=== PATIENT | male | born 1975 | race Caucasian/White ===

== ENCOUNTER 2019-02-17 20:33 | Inpatient (IN) ==
[2019-02-17] MEDS ORDERED: NITROGLYCERIN 2% OINTMENT 30GM TUBE EXT STA (21:18)
[2019-02-17] MEDS ORDERED: MoRPHine SULFATE 4 MG/ML 1 ML CARP\\VIAL IV STA (21:18)
[2019-02-17] MEDS ORDERED: ASPIRIN 81 MG CHEW PO STA (21:18)
[2019-02-17 21:38] LABS: INR 1.1 (0.9-1.1); Prothrombin Time 10.8 Seconds (9.0-12.0)
[2019-02-17 21:51] LABS: Albumin Level 3.9 gm/dl (3.4-5.0); BUN Creatinine Ratio 12.3 (10-20); Calcium 9.3 mg/dl (8.5-10.1); Creatinine Clr Calc Pharmacy 69.9 ml/min; Est GFR (African American) 58.1; Est GFR (Non-African American) 50.1
[2019-02-17 22:09] LABS: Basophils # (auto) 0.07 K/uL (0-0.2); Basophils % (auto) 0.6 %; Eosinophils # (auto) 0.19 K/uL (0-0.5); Eosinophils % (auto) 1.5 %; Hematocrit (blood only) 55.1 % (42-52); Immature Granulocytes % (auto) 0.8 %; Lymphocytes # (auto) 1.06 K/uL (1.2-3.4); Lymphocytes % (auto) 8.4 %; Mean Corpuscular Hemoglobin 31.3 pg (25-34); Mean Corpuscular Volume 90.6 fL (80-100); Mean Platelet Volume 9.8 fL (7.4-10.4); Monocytes % (auto) 6.4 %; Neutrophils # (auto) 10.34 K/uL (1.4-6.5); Neutrophils % (auto) 82.3 %; Platelet Count 235 K/uL (130-400); RDW Coefficient of Variation 14.3 % (11.5-14.5); RDW Standard Deviation 47.8 fL (36.4-46.3); Red Blood Count 6.08 M/uL (4.7-6.1); White Blood Count 12.56 K/uL (4.8-10.8)
[2019-02-17 22:10] LABS: Bilirubin,Total 0.3 mg/dl (0.2-1); Globulin 3.8 gm/dl (2.5-4.0); Total Protein 7.7 gm/dl (6.4-8.2); Troponin I 0.24 ng/ml (0-0.045)
[2019-02-17 22:21] LABS: Mean Corpuscular Hgb Conc 34.5 g/dL (32-36)
--- NOTE | 2019-02-18 00:17 | Emergency Department Note ---
History of Present Illness General Chief Complaint: Chest Pain Stated Complaint: chest pain History of Present Illness Maximum Pain Intensity: 9 This patient is a 43-year-old male who presents to the emergency department with sudden onset of midsternal chest pain that he describes as a burning sensation when he was doing a bench press exercise today. The patient had a similar episode of chest pain that started 1 week ago. It lasted several hours. He was also working out at that time. The patient was seen at [facility] where he refused a work-up, and signed out AMA. The patient currently denies any shortness of breath. He is still experiencing the pain. No dizziness, nausea or sweating. No heart palpitations. He does not have a history of known cardiac disease. He has never had a stress test. He does not smoke, and denies any cocaine use. He is taking a significant amount of supplements for weightlifting. He was told that he had an elevated CK last week Home Medications Home Medications Medication Instructions Recorded Confirmed Type ibuprofen 400 mg PO QID PRN 02/17/19 02/17/19 History sildenafil 0 mg PO DAILY PRN 02/17/19 02/17/19 History tadalafil 0 mg PO DAILY PRN 02/17/19 02/17/19 History aspirin [Ecotrin Low Strength] 81 mg PO QAM 30 Days #30 tab 02/19/19 Rx atorvastatin 80 mg PO QAM 30 Days #60 tab 02/19/19 Rx lisinopril [Zestril] 5 mg PO QAM 30 Days #30 tab 02/19/19 Rx metoprolol tartrate 25 mg PO BID 30 Days #60 tab 02/19/19 Rx prasugrel [Effient] 10 mg PO QAM 30 Days #30 tab 02/19/19 Rx Allergies Allergy/AdvReac Type Severity Reaction Status Date / Time No Known Allergies Allergy Unverified 02/17/19 22:22 Past Med/Surg History Medical History No pertinent past medical history Social History Preferred Language: German Communication Ability: 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 Beliefs That Will Affect Care: None Current Living Situation: Spouse Feels Safe at Home: Yes Smoking Status: Never smoker Hx Alcohol Use: Yes Alcohol type: hard liquor Hx Substance Use: No Review of Systems A total of 10 systems reviewed and were otherwise negative Physical Exam Vital Signs Vital Signs - 24 hr 02/17/19 20:34 02/17/19 21:52 02/17/19 23:31 Temperature 36.3 C L Temperature Source Oral Sepsis Recent Fever Within 48 Hours No Sepsis New/Unexplained Change in Mental Status No Sepsis Action Taken by Nursing No Action Required Pulse Rate 71 Pulse Rate [Finger] 107 H Pulse Rhythm [Finger] Regular Pulse Strength [Finger] Normal Respiratory Rate 98 H 20 18 Respiratory Effort / Characteristics Non-Labored Spontaneous Non-Labored Spontaneous Respiratory Depth Normal Normal Respiratory Pattern Regular Blood Pressure 158/115 H Blood Pressure [Right Arm] 163/105 H 140/95 Blood Pressure Mean 129 Blood Pressure Mean [Right Arm] 124 110 Blood Pressure Position [Right Arm] Lying Lying Pulse Oximetry 99 96 95 Oxygen Delivery Method Room Air Room Air Room Air Constitutional WD/WN, vitals as above Eyes EOM intact bilaterally ENMT external ear and nose normal, oropharynx normal Neck trachea midline Respiratory normal respiratory effort, lungs clear to auscultation Cardiovascular RRR, no murmur, no edema Gastrointestinal (Abdomen) normal bowel sounds, soft, nontender, no hepatosplenomegaly Musculoskeletal no cyanosis or clubbing, extremities motor strength 5/5 Skin no rashes, warm and dry Neurologic Alert and oriented x3. No focal motor deficits. Psychiatric Acting appropriately Course Patient was seen and examined Vital signs including blood pressure were reviewed medications list was verified with patient Labs were obtained, and a saline lock was established The patient was ordered nitroglycerin, aspirin and morphine IV. The patient refused to the nitroglycerin. He did agree to take the aspirin. He denied the morphine. I was called to the bedside that the patient was refusing his chest x-ray wanted to leave. My supervising physician and I thoroughly discussed his results. He was initially refusing any further treatment. We were able to get the patient to agree to a repeat troponin and EKG. These were performed. The findings were discussed with the patient. He was in agreement to stay. He finally agreed to a chest x-ray, which was performed and reviewed by myself and my supervising physician The patient was ordered heparin and heparin drip with a bolus [facility] was consulted. They will evaluate the patient for likely inpatient management. The patient is currently pain-free. Consultations Consultation #1: Dr. Burns Administered Medications Discontinued Medications Acetaminophen (Tylenol) 650 mg PO Q4H PRN PRN Reason: mild pain or fever Stop: 03/20/19 01:54 Last Admin: 02/18/19 07:51 Dose: 650 mg Documented by: [id number] Aspirin (Aspirin Chew) 324 mg PO NOW [facility] Stop: 02/17/19 21:19 Last Admin: 02/17/19 21:44 Dose: 324 mg Documented by: [id number] Aspirin (Ecotrin Ectab) 81 mg PO [facility] Stop: 03/20/19 08:59 Last Admin: 02/19/19 08:40 Dose: 81 mg Documented by: [id number] Admin: 02/18/19 07:43 Dose: 81 mg Documented by: [id number] Atorvastatin Calcium (Lipitor) 80 mg PO [facility] Stop: 03/21/19 08:59 Last Admin: 02/19/19 08:41 Dose: 80 mg Documented by: [id number] Famotidine (Pepcid) 20 mg PO BID [facility] Stop: 03/20/19 08:59 Last Admin: 02/19/19 08:39 Dose: 20 mg Documented by: [id number] Admin: 02/18/19 20:16 Dose: 20 mg Documented by: [id number] Admin: 02/18/19 07:43 Dose: 20 mg Documented by: [id number] Fentanyl Citrate (Fentanyl Citrate) Confirm Administered Dose 100 mcg .ROUTE .STK-MED ONE Stop: 02/18/19 09:32 Last Admin: 02/18/19 11:19 Dose: 150 mcg Documented by: [id number] Fentanyl Citrate (Fentanyl Citrate) Confirm Administered Dose 100 mcg .ROUTE .STK-MED ONE Stop: 02/18/19 10:36 Last Admin: 02/18/19 11:20 Dose: Not Given Documented by: [id number] Heparin Sodium (Porcine) (Heparin Iv Bolus) Confirm Administered Dose 10,000 units .ROUTE .STK-MED ONE Stop: 02/18/19 01:07 Last Admin: 02/18/19 01:11 Dose: 7,000 units Documented by: [id number] Cosigned by: [id number] Heparin Sodium (Porcine) (Heparin Iv Bolus (Forming Department End Finder Use Only)) Confirm Administered Dose 10,000 units .ROUTE .STK-MED ONE Stop: 02/18/19 09:32 Last Admin: 02/18/19 11:20 Dose: 10,000 units Documented by: [id number] Heparin Sodium/Dextrose () 1 ea IV NOW STA; Protocol Stop: 02/18/19 00:32 Last Admin: 02/18/19 01:13 Dose: Not Given Documented by: [id number] Heparin Sodium/Sodium Chloride (Heparin/Nss 1000 Unit/500ml Flush Bag) Confirm Administered Dose 3,000 units IV .STK-MED ONE Stop: 02/18/19 09:33 Last Admin: 02/18/19 09:51 Dose: 3,000 units Documented by: [id number] Heparin Sodium/Dextrose (Heparin Sodium/Dextrose) 25,000 units in 500 mls @ 31 mls/hr IV .Q16H8M CIPRIANO; Protocol Stop: 03/20/19 00:44 Last Titration: 02/18/19 12:27 Dose: 0 units/hr, 0 mls/hr Documented by: [id number] Cosigned by: [id number] Titration: 02/18/19 07:08 Dose: 1,450 units/hr, 29 mls/hr Documented by: [id number] Cosigned by: [id number] Admin: 02/18/19 01:12 Dose: 1,550 units/hr, 31 mls/hr Documented by: [id number] Cosigned by: [id number] Lactated Ringer's (Lr) 1,000 mls @ 100 mls/hr IV .Q10H CIPRIANO Stop: 03/20/19 01:54 Last Infusion: 02/18/19 12:29 Dose: 0 mls/hr Documented by: [id number] Admin: 02/18/19 12:27 Dose: Not Given Documented by: [id number] Admin: 02/18/19 02:30 Dose: 100 mls/hr Documented by: [id number] Sodium Chloride (Nss 1000ml) 1,000 mls @ 100 mls/hr IV .Q10H CIPRIANO Stop: 02/18/19 19:29 Last Infusion: 02/18/19 22:47 Dose: 0 mls/hr Documented by: [id number] Admin: 02/18/19 12:41 Dose: 100 mls/hr Documented by: [id number] Acetaminophen (Ofirmev) 1,000 mg in 100 mls @ 400 mls/hr IV NOW STA Stop: 02/18/19 17:20 Last Infusion: 02/18/19 17:38 Dose: 0 mls/hr Documented by: [id number] Admin: 02/18/19 17:19 Dose: 400 mls/hr Documented by: [id number] Lisinopril (Zestril) 5 mg PO QAM [facility] Stop: 03/21/19 08:59 Last Admin: 02/19/19 08:40 Dose: 5 mg Documented by: [id number] Metoprolol Tartrate (Lopressor) 25 mg PO BID [facility] Stop: 03/20/19 20:59 Last Admin: 02/19/19 08:39 Dose: 25 mg Documented by: [id number] Admin: 02/18/19 20:16 Dose: 25 mg Documented by: [id number] Midazolam HCl (Versed) Confirm Administered Dose 2 mg .ROUTE .STK-MED ONE Stop: 02/18/19 09:33 Last Admin: 02/18/19 11:20 Dose: 5 mg Documented by: [id number] Midazolam HCl (Versed) Confirm Administered Dose 2 mg .ROUTE .STK-MED ONE Stop: 02/18/19 10:32 Last Admin: 02/18/19 11:20 Dose: Not Given Documented by: [id number] Midazolam HCl (Versed) Confirm Administered Dose 2 mg .ROUTE .STK-MED ONE Stop: 02/18/19 11:10 Last Admin: 02/18/19 11:21 Dose: Not Given Documented by: [id number] Morphine Sulfate (Morphine Sulfate) 4 mg IV NOW STA Stop: 02/17/19 21:19 Last Admin: 02/17/19 22:10 Dose: Not Given Documented by: [id number] Nicardipine HCl (Cardene) Confirm Administered Dose 25 mg .ROUTE .STK-MED ONE Stop: 02/18/19 09:32 Last Admin: 02/18/19 09:50 Dose: 25 mg Documented by: [id number] Nitroglycerin (Nitro-Bid 2%) 2 inch EXT Q6H STA Stop: 02/17/19 21:19 Last Admin: 02/17/19 22:11 Dose: Not Given Documented by: [id number] Nitroglycerin/Dextrose (Nitroglycerin/D5w 100 Mcg/Ml 20ml Syringe) Confirm Administered Dose 2,000 mcg .ROUTE .STK-MED ONE Stop: 02/18/19 09:33 Last Admin: 02/18/19 09:51 Dose: 2,000 mcg Documented by: [id number] Prasugrel (Effient) Confirm Administered Dose 60 mg PO .Diagonal View-MED ONE Stop: 02/18/19 11:17 Last Admin: 02/18/19 11:21 Dose: 60 mg Documented by: [id number] Prasugrel (Effient) 10 mg PO [facility] Stop: 03/21/19 08:59 Last Admin: 02/19/19 08:40 Dose: 10 mg Documented by: [id number] Medical Decision Making Differential Diagnosis + unstable angina pectoris, + chest pain, + cardiac ischemia, + myocarditis, + pleurisy, + pulmonary embolism, + musculoskeletal and + esophageal rupture Medical Records Attestation: I reviewed the patient's medical records. Home Medications Current Medication List: was personally reviewed by me Laboratory Data Attestation: I reviewed the patient's lab results. Result diagrams: 02/19/19 06:19 02/19/19 06:19 Lab Results 02/17/19 02/17/19 02/17/19 Range/Units 21:06 21:06 21:06 WBC 12.56 H (4.8-10.8) K/uL RBC 6.08 (4.7-6.1) M/uL Hgb 19.0 H (14.0-18.0) g/dL Hct 55.1 H (42-52) % MCV 90.6 (80-100) fL MCH 31.3 (25-34) pg MCHC 34.5 (32-36) g/dL RDW Std Deviation 47.8 H (36.4-46.3) fL RDW Coeff of Georgi 14.3 (11.5-14.5) % Plt Count 235 (130-400) K/uL MPV 9.8 (7.4-10.4) fL Immature Gran % (Auto) 0.8 % Neut % (Auto) 82.3 % Lymph % (Auto) 8.4 % Cannon % (Auto) 6.4 % Eos % (Auto) 1.5 % Baso % (Auto) 0.6 % Immature Gran # (Auto) 0.10 H (0.00-0.02) K/uL Neut # (Auto) 10.34 H (1.4-6.5) K/uL Lymph # (Auto) 1.06 L (1.2-3.4) K/uL Cannon # (Auto) 0.80 H (0.11-0.59) K/uL Eos # (Auto) 0.19 (0-0.5) K/uL Baso # (Auto) 0.07 (0-0.2) K/uL PT 10.8 (9.0-12.0) Seconds INR 1.1 (0.9-1.1) Sodium 135 L (136-145) mmol/L Potassium 5.0 (3.5-5.1) mmol/L Chloride 100 (98-107) mmol/L Carbon Dioxide 29 (21-32) mmol/L Anion Gap 7.0 (3-11) BUN 20 H (7-18) mg/dl Creatinine 1.63 H (0.6-1.4) mg/dl Est Cr Clr Drug Dosing 69.9 ml/min Est GFR ( Amer) 58.1 Est GFR (Non-Af Amer) 50.1 BUN/Creatinine Ratio 12.3 (10-20) Glucose 133 H (70-99) mg/dl Calcium 9.3 (8.5-10.1) mg/dl Total Bilirubin 0.3 (0.2-1) mg/dl AST 47 H (15-37) U/L ALT 87 H (12-78) U/L Alkaline Phosphatase 63 (45-117) U/L Total Creatine Kinase 1081 H (39-308) U/L Troponin I 0.240 H* (0-0.045) ng/ml Total Protein 7.7 (6.4-8.2) gm/dl Albumin 3.9 (3.4-5.0) gm/dl Globulin 3.8 (2.5-4.0) gm/dl Albumin/Globulin Ratio 1.0 (0.9-2) Lipase 147 (73-393) U/L 02/17/19 Range/Units 23:18 WBC (4.8-10.8) K/uL RBC (4.7-6.1) M/uL Hgb (14.0-18.0) g/dL Hct (42-52) % MCV (80-100) fL MCH (25-34) pg MCHC (32-36) g/dL RDW Std Deviation (36.4-46.3) fL RDW Coeff of Georgi (11.5-14.5) % Plt Count (130-400) K/uL MPV (7.4-10.4) fL Immature Gran % (Auto) % Neut % (Auto) % Lymph % (Auto) % Cannon % (Auto) % Eos % (Auto) % Baso % (Auto) % Immature Gran # (Auto) (0.00-0.02) K/uL Neut # (Auto) (1.4-6.5) K/uL Lymph # (Auto) (1.2-3.4) K/uL Cannon # (Auto) (0.11-0.59) K/uL Eos # (Auto) (0-0.5) K/uL Baso # (Auto) (0-0.2) K/uL PT (9.0-12.0) Seconds INR (0.9-1.1) Sodium (136-145) mmol/L Potassium (3.5-5.1) mmol/L Chloride (98-107) mmol/L Carbon Dioxide (21-32) mmol/L Anion Gap (3-11) BUN (7-18) mg/dl Creatinine (0.6-1.4) mg/dl Est Cr Clr Drug Dosing ml/min Est GFR ( Amer) Est GFR (Non-Af Amer) BUN/Creatinine Ratio (10-20) Glucose (70-99) mg/dl Calcium (8.5-10.1) mg/dl Total Bilirubin (0.2-1) mg/dl AST (15-37) U/L ALT (12-78) U/L Alkaline Phosphatase (45-117) U/L Total Creatine Kinase (39-308) U/L Troponin I 7.010 H* (0-0.045) ng/ml Total Protein (6.4-8.2) gm/dl Albumin (3.4-5.0) gm/dl Globulin (2.5-4.0) gm/dl Albumin/Globulin Ratio (0.9-2) Lipase (73-393) U/L Imaging Data Chest x-ray: Attestation: I personally reviewed and interpreted this imaging study as follows: Radiologist's impression: Per my interpretation, no mediastinal widening noted. No failure. No infiltrate noted. ECG Data Attestation: I personally reviewed and interpreted this ECG as follows: Indication: chest pain Rate (beats per minute): 77 Rhythm: sinus with SA Findings: + T-wave inversion (Inferior) Comparison ECG Date: no prior available Additional Comments: Repeat EKG performed at 2228 shows an increased rate. Otherwise unchanged. Blood Pressure Blood Pressure Findings: Elevated blood pressure MDM Narrative This patient is a 43-year-old male who presents the emergency department with a sudden onset of chest pain. On exam, he was hypertensive. He appeared uncomfortable. The patient was initially refusing care. He has a family history of cardiac disease. EKG shows inverted T waves in the inferior leads. Patient refused nitroglycerin and pain medication. He was in agreement to aspirin. We were finally able to get the patient to repeat a troponin, which is significantly elevated. I am concerned for cardiac ischemia and unstable angina. For these reasons, I highly encouraged the patient to at least be evaluated by the [facility] for possible inpatient management. He is in agreement Of note, due to significant resistance from the patient/refusal, care was delayed Impression & Plan Non-ST elevation [place] (NSTEMI) Discharge Plan Visit Data *Final* Discharge Date/Time: 02/18/19 01:36 Chief Complaint: Chest Pain Stated Complaint: chest pain ED Provider: Jayro Guardado ED Midlevel Provider: Orquidea Daigle Discharge Problem: Non-ST elevation [place] (NSTEMI) Patient Disposition: Admitted As Inpatient Condition: Serious Discharge Instructions Interventions: ED Discharge Assessment Last Done: 02/18/19 01:36
[2019-02-18] MEDS ORDERED: HEPARIN SODIUM/DEXTROSE 25,000 UNITS/500 ML BAG IV SCH (00:45)
[2019-02-18] MEDS ORDERED: HEPARIN SOD (PORCINE) 1000 UNIT/ML 10 ML VIAL ONE (01:06)
--- NOTE | 2019-02-18 01:16 | Emergency Department Note ---
ED Visit Note I have personally evaluated this patient examined him and reviewed the pertinent labs and data. I have discussed the case with Orquidea Daigle, the physician certified physician assistant and agree with the plan. Please refer to the PA note. This patient had an episode of chest pain after doing some heavy lifting with bench pressing today. There is no trauma. His similar episode a week ago. He did take an aspirin and the symptoms have since resolved. His initial EKG does not show any significant ST segment elevation or STEMI changes. I did a second EKG and there is no change compared to the first. There is no acute STEMI. The patient was found to have an elevated CK of the thousand his troponin is mildly elevated 0.24. The patient declined an x-ray. The rest of his blood work was unremarkable initially. I talked the patient at length he is adamant that he will not stay in the hospital. He when he was seen at [facility] 1 week ago and he refused to stay there as well. I told him I am very concerned with his elevated troponin that this could be either warning sign that he had a heart attack or that he may have had a heart attack even or heart damage. He acknowledges this but does not want to stay. He also refusing x-ray and IV fluids initially. He also refused a rectal exam. I convinced him to do a second troponin and the second troponin done 2 hours after the first was significantly elevated at 7. In light of this, he has ruled in for an acute AK essentially. I told him this and told him that he absolutely needs to stay and he finally did agree after multiple lengthy conversations with the patient and his . He did also agree to the chest x-ray and it has a normal aortic contour and no definite failure. he had no tearing or back pain or anything clinically to suggest aortic dissection. At present he is pain-free. I did talk to Dr. Burns, who will admit him, he does want to heparinize him we did order the weight-based heparin. The patient will be admitted for further cardiac work-up and evaluation. .
--- NOTE | 2019-02-18 01:26 | History & Physical Report ---
Date of Service February 18, 2019 Assessment & Plan (1) Non-ST elevation [place] (NSTEMI): Initial trop 0.24 repeat in 2 hours was 7.01. Will continue to trend. Full dose aspirin given in the ED will continue 81mg daily. NPO except meds cardiology consult echo Heparin gtt PRN NTG Morphine for chest pain. History of Present Illness 43 y/o male presented to the ED with sudden onset of non-radiating, midsternal chest pain described as a burning pain while doing bench press. No associated SOB, diaphoresis, N/V, or dizziness. He had a similar episode 1 week prior and was seen in [place] ED but left AMA. No palpitations. Patient declines using cocaine or other illicit substances. He does use multiple supplements weight lifting. Primary Care Provider: NO PCP Allergies Allergy/AdvReac Type Severity Reaction Status Date / Time No Known Allergies Allergy Unverified 02/17/19 22:22 Home Medications Home Medications Medication Instructions Recorded Confirmed Type ibuprofen 400 mg PO QID PRN 02/17/19 02/17/19 History sildenafil 0 mg PO DAILY PRN 02/17/19 02/17/19 History tadalafil 0 mg PO DAILY PRN 02/17/19 02/17/19 History Past Med/Surg History Medical History No pertinent past medical history Social History Preferred Language: Malaysian Feels Safe at Home: Yes Smoking Status: Never smoker Review of Systems 2 Review of Systems: Constitutional- no fever; no weight loss Eyes- no acute visual changes ENT- no sinus drainage; no pharyngitis Pulmonary- no cough, no wheezing, no shortness of breath Cardiac- As in HPI GI- no nausea, no vomiting, no diarrhea, no melena, no hematochezia - no dysuria, no hematuria Musculoskeletal- no arthralgias, no myalgias Derm- no rashes, no new skin lesions, no changing skin lesions Hematologic- no unusual bruising, no unusual bleeding Lymphatics- no adenopathy Endocrine- no polyuria or polydipsia; no heat or cold intolerance Neuro- no headaches, no focal neurologic symptoms Psych- no anxiety, no depression Physical Exam Physical Exam: General- adult male, NAD Head- atraumatic Eyes- PERRL, EOMI, anicteric ENT- oropharynx clear Neck- supple, no JVD, no adenopathy, no thyromegaly. Lungs- CTA b/l no R/R/W. Heart- regular rhythm; no murmur, no gallop, no rub appreciated Abdomen- normal bowel sounds, soft, nontender. Extremities- no pretibial edema, no calf tenderness; peripheral pulses intact Neuro- alert, oriented x 3; PERRL, EOMI; broadcast traffic coordinator II-XII grossly intact, Non-focal. Skin- warm & dry Results & Data Vital Signs (Past 12 Hours) Vital Signs Temp Pulse Pulse Resp BP BP Pulse Ox 02/17/19 23:31 107 H 18 140/95 95 02/17/19 21:52 20 163/105 H 96 02/17/19 20:34 36.3 C L 71 98 H 158/115 H 99 Laboratory Results Laboratory Results WBC 12.56 K/uL (4.8-10.8) H 02/17/19 21:06 RBC 6.08 M/uL (4.7-6.1) 02/17/19 21:06 Hgb 19.0 g/dL (14.0-18.0) H 02/17/19 21:06 Hct 55.1 % (42-52) H 02/17/19 21:06 MCV 90.6 fL (80-100) 02/17/19 21:06 MCH 31.3 pg (25-34) 02/17/19 21:06 MCHC 34.5 g/dL (32-36) 02/17/19 21:06 RDW Std Deviation 47.8 fL (36.4-46.3) H 02/17/19 21:06 RDW Coeff of Georgi 14.3 % (11.5-14.5) 02/17/19 21:06 Plt Count 235 K/uL (130-400) 02/17/19 21:06 MPV 9.8 fL (7.4-10.4) 02/17/19 21:06 Immature Gran % (Auto) 0.8 % 02/17/19 21:06 Neut % (Auto) 82.3 % 02/17/19 21:06 Lymph % (Auto) 8.4 % 02/17/19 21:06 [place] % (Auto) 6.4 % 02/17/19 21:06 Eos % (Auto) 1.5 % 02/17/19 21:06 Baso % (Auto) 0.6 % 02/17/19 21:06 Immature Gran # (Auto) 0.10 K/uL (0.00-0.02) H 02/17/19 21:06 Neut # (Auto) 10.34 K/uL (1.4-6.5) H 02/17/19 21:06 Lymph # (Auto) 1.06 K/uL (1.2-3.4) L 02/17/19 21:06 [place] # (Auto) 0.80 K/uL (0.11-0.59) H 02/17/19 21:06 Eos # (Auto) 0.19 K/uL (0-0.5) 02/17/19 21:06 Baso # (Auto) 0.07 K/uL (0-0.2) 02/17/19 21:06 PT 10.8 Seconds (9.0-12.0) 02/17/19 21:06 INR 1.1 (0.9-1.1) 02/17/19 21:06 Sodium 135 mmol/L (136-145) L 02/17/19 21:06 Potassium 5.0 mmol/L (3.5-5.1) 02/17/19 21:06 Chloride 100 mmol/L (98-107) 02/17/19 21:06 Carbon Dioxide 29 mmol/L (21-32) 02/17/19 21:06 Anion Gap 7.0 (3-11) 02/17/19 21:06 BUN 20 mg/dl (7-18) H 02/17/19 21:06 Creatinine 1.63 mg/dl (0.6-1.4) H 02/17/19 21:06 Est Cr Clr Drug Dosing 69.9 ml/min 02/17/19 21:06 Est GFR ( Amer) 58.1 02/17/19 21:06 Est GFR (Non-Af Amer) 50.1 02/17/19 21:06 BUN/Creatinine Ratio 12.3 (10-20) 02/17/19 21:06 Glucose 133 mg/dl (70-99) H 02/17/19 21:06 Calcium 9.3 mg/dl (8.5-10.1) 02/17/19 21:06 Total Bilirubin 0.3 mg/dl (0.2-1) 02/17/19 21:06 AST 47 U/L (15-37) H 02/17/19 21:06 ALT 87 U/L (12-78) H 02/17/19 21:06 Alkaline Phosphatase 63 U/L (45-117) 02/17/19 21:06 Total Creatine Kinase 1081 U/L (39-308) H 02/17/19 21:06 Troponin I 7.010 ng/ml (0-0.045) H* 02/17/19 23:18 Total Protein 7.7 gm/dl (6.4-8.2) 02/17/19 21:06 Albumin 3.9 gm/dl (3.4-5.0) 02/17/19 21:06 Globulin 3.8 gm/dl (2.5-4.0) 02/17/19 21:06 Albumin/Globulin Ratio 1.0 (0.9-2) 02/17/19 21:06 Lipase 147 U/L (73-393) 02/17/19 21:06 Code Status & VTE Plan VTE Prophylaxis Plan VTE Prophylaxis will be ordered: Yes PG Care Time/CCT Total # of Minutes Spent Total Time Spent: 65 Total Time Spent with Patient: Total time spent is greater than 50% in coordination of care (as documented) at patient's floor/unit and/or counseling patient:
[2019-02-18] MEDS ORDERED: LORazepam 0.5 MG/1 ML VIAL IV PRN (01:55)
[2019-02-18] MEDS ORDERED: MoRPHine SULFATE 4 MG/ML 1 ML CARP\\VIAL IV PRN (01:55)
[2019-02-18] MEDS ORDERED: ONDANSETRON INJ 2 MG/ML 2 ML VIAL IV PRN ×2 (01:55→11:55)
[2019-02-18] MEDS ORDERED: METOPROLOL TARTRATE 1 MG/ML VIAL IV PRN (01:55)
[2019-02-18] MEDS ORDERED: MoRPHine SULFATE 2 MG/ML CARP IV PRN (01:55)
[2019-02-18] MEDS ORDERED: ACETAMINOPHEN 325 MG TAB PO PRN (01:55)
[2019-02-18] MEDS ORDERED: NITROGLYCERIN SL 0.4 MG/TAB TAB SL PRN (01:55)
[2019-02-18] MEDS: LACTATED RINGER'S 1,000 ML IV SCH ×2 (02:30→12:27)
--- NOTE | 2019-02-18 06:33 | XRay Report ---
XR chest 1V portable HISTORY: 43 years-old Male chest pain acutely elevated troponin with acute atypical chest pain COMPARISON: None available TECHNIQUE: Portable AP view of the chest FINDINGS: Cardiomediastinal and hilar silhouettes are within normal limits. No pneumothorax, pleural effusion, focal airspace consolidation or overt pulmonary edema. Bones of the chest appear grossly intact. Torri fact noted along the lateral left aspect of the film. IMPRESSION: No acute process. The above report was generated using voice recognition software. It may contain grammatical, syntax o r spelling errors. Electronically signed by: Geovany Dumont M.D. 02/18/2019 6:32 AM
[2019-02-18 06:39] LABS: Hematocrit (blood only) 53.3 % (42-52); Hemoglobin 18.9 g/dL (14.0-18.0); Mean Corpuscular Hemoglobin 31.7 pg (25-34); Mean Corpuscular Hgb Conc 35.5 g/dL (32-36); Mean Corpuscular Volume 89.4 fL (80-100); Mean Platelet Volume 9.2 fL (7.4-10.4); Platelet Count 225 K/uL (130-400); RDW Coefficient of Variation 14.4 % (11.5-14.5); RDW Standard Deviation 46.7 fL (36.4-46.3); Red Blood Count 5.96 M/uL (4.7-6.1); White Blood Count 14.33 K/uL (4.8-10.8)
[2019-02-18 06:58] LABS: Partial Thromboplastin Ratio 2.6
[2019-02-18 07:02] LABS: Partial Thromboplastin Time 69.5 Seconds (21.0-31.0)
[2019-02-18 07:27] LABS: BUN Creatinine Ratio 10.4 (10-20); Calcium 9.4 mg/dl (8.5-10.1); Creatinine Clr Calc Pharmacy 81.1 ml/min; Est GFR (African American) 71.1; Est GFR (Non-African American) 61.3; Magnesium 1.7 mg/dl (1.8-2.4); Potassium 3.6 mmol/L (3.5-5.1)
[2019-02-18] MEDS: FAMOTIDINE 20 MG TAB PO SCH ×2 (07:43→20:16)
[2019-02-18] MEDS: ASPIRIN 81 MG ECTAB PO SCH (07:43)
--- NOTE | 2019-02-18 08:55 | Cardiology Consultation ---
Date of Consultation February 18, 2019 Assessment & Plan (1) Non-ST elevation IN (NSTEMI): Patient's presentation consistent with NSTEMI. With significant troponin elevation, regional wall motion abnormalities on echo recommend early invasive approach to further evaluation. We will plan on cardiac catheterization later today. Continue heparin infusion. Please keep n.p.o. Continue aspirin, Nitropaste, start statin. Further recommendations pending findings. History of Present Illness Attending Physician: Beni Burns DO History of Present Illness 43-year-old man here with acute chest pain and troponin elevation consistent with NSTEMI. No prior cardiac history. Denies active medical problems and is on no medications. Denies tobacco use. Family history of coronary artery disease with a father had an IN in his 50s. Yesterday was weightlifting and approximately 10 to 20 minutes afterwards developed acute substernal chest pain. Pain lasted for approximately 30 minutes and was relieved after reach the ED. Reports one episode of similar chest pain 1 week ago again after weight lifting. Upon arrival here yesterday was hypertensive up to the 190s, sinus tachycardia to the 100s. EKG with no dynamic changes. Troponin initially 0.24, later 7, this morning 19.3. She was started on heparin, Nitropaste. Was chest pain-free overnight. Echocardiogram this morning showed normal LV function but with subtle apical wall motion abnormality. Allergies Allergy/AdvReac Type Severity Reaction Status Date / Time No Known Allergies Allergy Unverified 02/17/19 22:22 Home Medications Home Medications Medication Instructions Recorded Confirmed Type ibuprofen 400 mg PO QID PRN 02/17/19 02/17/19 History sildenafil 0 mg PO DAILY PRN 02/17/19 02/17/19 History tadalafil 0 mg PO DAILY PRN 02/17/19 02/17/19 History aspirin [Ecotrin Low Strength] 81 mg PO QAM 30 Days #30 tab 02/19/19 Rx atorvastatin 80 mg PO QAM 30 Days #60 tab 02/19/19 Rx lisinopril [Zestril] 5 mg PO QAM 30 Days #30 tab 02/19/19 Rx metoprolol tartrate 25 mg PO BID 30 Days #60 tab 02/19/19 Rx prasugrel [Effient] 10 mg PO QAM 30 Days #30 tab 02/19/19 Rx Patient History Medical History No pertinent past medical history Social History Preferred Language: Guamanian Communication Ability: Effective Plaster Pattern Caster Required: No Beliefs That Will Affect Care: None Current Living Situation: Spouse Feels Safe at Home: Yes Smoking Status: Never smoker Hx Alcohol Use: Yes Alcohol type: hard liquor Hx Substance Use: No Review of Systems Review of Systems: All systems reviewed & are unremarkable except as noted in HPI & below Physical Exam Physical Exam: General: Comfortable, no acute distress Eyes: Sclerae anicteric, extraocular movements intact HENT: Oropharynx clear mucous membranes moist Neck: Normal carotid upstrokes, no bruits. No JVD. Lungs: Clear to auscultation bilaterally, no rhonchi or wheezes Cardiac: Regular rate and rhythm, no murmurs, rubs or gallops. Vascular: 2+ radial, DP and PT pulses. Abdomen: Soft, nontender, nondistended, positive bowel sounds. Extremities: Well perfused, no peripheral edema Skin: No rashes or lesions. Neuro: Nonfocal Psych: Alert orient x3, normal affect and mood Results & Data Vital Signs (Past 12 Hours) Vital Signs Temp Pulse Pulse Pulse Resp BP Pulse Ox 02/18/19 07:34 98.1 F 98 H 18 136/86 93 02/18/19 07:02 98.4 F 97 H 18 159/96 H 95 02/18/19 03:28 98.4 F 102 H 18 148/88 H 94 02/18/19 02:23 98 H 18 143/87 H 02/18/19 02:00 108 H 02/18/19 01:55 98.1 F 105 H 20 199/83 H 98 02/18/19 01:28 105 H 18 115/65 94 02/17/19 23:31 107 H 18 140/95 95 02/17/19 21:52 20 163/105 H 96 Pulse Ox 02/18/19 07:34 02/18/19 07:02 02/18/19 03:28 02/18/19 02:23 02/18/19 02:00 02/18/19 01:55 98 02/18/19 01:28 02/17/19 23:31 02/17/19 21:52 PG Care Time/CCT Total # of Minutes Spent Total Time Spent with Patient: Total time spent is greater than 50% in coordination of care (as documented) at patient's floor/unit and/or counseling patient:
[2019-02-18] MEDS ORDERED: HEPARIN (PORCINE) 1000 UNIT/ML 10 ML (CATH LAB USE ONLY) ONE (09:31)
[2019-02-18] MEDS ORDERED: NiCARDipine HCL INJ 2.5 MG/ML 10 ML AMP ONE (09:31)
[2019-02-18] MEDS ORDERED: fentaNYL citrate 100 MCG/2 ML VIAL ONE ×2 (09:31→10:35)
[2019-02-18] MEDS ORDERED: NITROGLYCERIN/D5W 100MCG/ML 20ML SYR ONE (09:32)
[2019-02-18] MEDS ORDERED: MIDAZOLAM HCL 1 MG/ML 2ML VIAL ONE ×3 (09:32→11:09)
--- NOTE | 2019-02-18 09:57 | Hospitalist Progress Note ---
Date of Service February 18, 2019 Assessment & Plan (1) Non-ST elevation MA (NSTEMI): 43 y/o male presented to the ED with sudden onset of non-radiating, midsternal chest pain described as a burning pain while doing bench press. No associated SOB, diaphoresis, N/V, or dizziness. He had a similar episode 1 week prior and was seen in [place] ED Non-ST Elevation MA: -Troponins trended up from admission 0.24 - 7.01 - 19.3; post-procedure 13.7 -s/p PCI with two stents placed in proximal LAD -started on Atorvastatin, lisinopril, metroprolol, ASA, and Effient following stent placement -Echo demonstrated and EF 45-50%, with mild hypokinesis of the mid and distal anterior wall and apex Supervising Physician Co-Signing Physician Notes I saw the patient current resident physician confirmed mckay portion of the history and physical exam. I read the impression and plan as noted above. Approximation, the patient is resting in bed post cardiac catheterization and placement of 2 drug-eluting stents.. Reviewed findings of the cardiac catheterization and procedure as well as the echocardiogram. Reviewed the medications that he is been started on including dual antiplatelet therapy, beta-hugo, GIANA inhibitor, and a statin. Briefly discussed return to work and exercise although will leave definitive answer on this to cardiology. Subjective Pt feels anxious at this point, as he is unsure why he got this amount of chest pain; did not sleep well overnight as his anxiety was consistently high revolving around having had this pain for over a week. Is aware that he is scheduled to go to chemical laboratory scientist today with Cardiology for a better look at his vessels. Thinks once he gets through this procedure he will feel more like himself and be less anxious about the pain Review of Systems Constitutional: + fatigue and + insomnia; no fever, no chills and no sweats Respiratory: no cough, no dyspnea and no wheezing Cardiovascular: no chest pain, no dyspnea, no palpitations and no edema Gastrointestinal: no abdominal pain, no nausea and no vomiting Physical Exam Constitutional: well developed and well nourished Eyes: PERRL, conjunctivae normal, anicteric sclerae ENMT: external ear and nose normal, oropharynx normal Respiratory: normal respiratory effort, lungs clear to auscultation Cardiovascular: RRR, no murmur, no edema Results & Data Vital Signs (Past 12 Hours) Vital Signs Temp Pulse Pulse Pulse Resp BP Pulse Ox 02/18/19 07:34 36.7 C 98 H 18 136/86 93 02/18/19 07:02 36.9 C 97 H 18 159/96 H 95 02/18/19 03:28 36.9 C 102 H 18 148/88 H 94 02/18/19 02:23 98 H 18 143/87 H 02/18/19 02:00 108 H 02/18/19 01:55 36.7 C 105 H 20 199/83 H 98 02/18/19 01:28 105 H 18 115/65 94 02/17/19 23:31 107 H 18 140/95 95 02/17/19 21:52 20 163/105 H 96 Pulse Ox 02/18/19 07:34 02/18/19 07:02 02/18/19 03:28 02/18/19 02:23 02/18/19 02:00 02/18/19 01:55 98 02/18/19 01:28 02/17/19 23:31 02/17/19 21:52 Laboratory Results 02/18/19 02/18/19 02/18/19 Range/Units 06:29 06:29 06:29 WBC (4.8-10.8) K/uL RBC (4.7-6.1) M/uL Hgb (14.0-18.0) g/dL Hct (42-52) % MCV (80-100) fL MCH (25-34) pg MCHC (32-36) g/dL RDW Std Deviation (36.4-46.3) fL RDW Coeff of Georgi (11.5-14.5) % Plt Count (130-400) K/uL MPV (7.4-10.4) fL Immature Gran % (Auto) % Neut % (Auto) % Lymph % (Auto) % [place] % (Auto) % Eos % (Auto) % Baso % (Auto) % Immature Gran # (Auto) (0.00-0.02) K/uL Neut # (Auto) (1.4-6.5) K/uL Lymph # (Auto) (1.2-3.4) K/uL [place] # (Auto) (0.11-0.59) K/uL Eos # (Auto) (0-0.5) K/uL Baso # (Auto) (0-0.2) K/uL PT (9.0-12.0) Seconds INR (0.9-1.1) APTT 69.5 H* (21.0-31.0) Seconds PTT Ratio 2.6 Sodium 135 L (136-145) mmol/L Potassium 3.6 D (3.5-5.1) mmol/L Chloride 100 (98-107) mmol/L Carbon Dioxide 30 (21-32) mmol/L Anion Gap 5.0 (3-11) BUN 14 (7-18) mg/dl Creatinine 1.38 (0.6-1.4) mg/dl Est Cr Clr Drug Dosing 81.1 ml/min Est GFR ( Amer) 71.1 Est GFR (Non-Af Amer) 61.3 BUN/Creatinine Ratio 10.4 (10-20) Glucose 107 H (70-99) mg/dl Calcium 9.4 (8.5-10.1) mg/dl Magnesium 1.7 L (1.8-2.4) mg/dl Total Bilirubin (0.2-1) mg/dl AST (15-37) U/L ALT (12-78) U/L Alkaline Phosphatase (45-117) U/L Total Creatine Kinase (39-308) U/L Troponin I 19.300 H* (0-0.045) ng/ml Total Protein (6.4-8.2) gm/dl Albumin (3.4-5.0) gm/dl Globulin (2.5-4.0) gm/dl Albumin/Globulin Ratio (0.9-2) Lipase (73-393) U/L 02/18/19 02/17/19 02/17/19 Range/Units 06:29 23:18 21:06 WBC 14.33 H (4.8-10.8) K/uL RBC 5.96 (4.7-6.1) M/uL Hgb 18.9 H (14.0-18.0) g/dL Hct 53.3 H (42-52) % MCV 89.4 (80-100) fL MCH 31.7 (25-34) pg MCHC 35.5 (32-36) g/dL RDW Std Deviation 46.7 H (36.4-46.3) fL RDW Coeff of Georgi 14.4 (11.5-14.5) % Plt Count 225 (130-400) K/uL MPV 9.2 (7.4-10.4) fL Immature Gran % (Auto) % Neut % (Auto) % Lymph % (Auto) % [place] % (Auto) % Eos % (Auto) % Baso % (Auto) % Immature Gran # (Auto) (0.00-0.02) K/uL Neut # (Auto) (1.4-6.5) K/uL Lymph # (Auto) (1.2-3.4) K/uL [place] # (Auto) (0.11-0.59) K/uL Eos # (Auto) (0-0.5) K/uL Baso # (Auto) (0-0.2) K/uL PT (9.0-12.0) Seconds INR (0.9-1.1) APTT (21.0-31.0) Seconds PTT Ratio Sodium 135 L (136-145) mmol/L Potassium 5.0 (3.5-5.1) mmol/L Chloride 100 (98-107) mmol/L Carbon Dioxide 29 (21-32) mmol/L Anion Gap 7.0 (3-11) BUN 20 H (7-18) mg/dl Creatinine 1.63 H (0.6-1.4) mg/dl Est Cr Clr Drug Dosing 69.9 ml/min Est GFR ( Amer) 58.1 Est GFR (Non-Af Amer) 50.1 BUN/Creatinine Ratio 12.3 (10-20) Glucose 133 H (70-99) mg/dl Calcium 9.3 (8.5-10.1) mg/dl Magnesium (1.8-2.4) mg/dl Total Bilirubin 0.3 (0.2-1) mg/dl AST 47 H (15-37) U/L ALT 87 H (12-78) U/L Alkaline Phosphatase 63 (45-117) U/L Total Creatine Kinase 1081 H (39-308) U/L Troponin I 7.010 H* 0.240 H* (0-0.045) ng/ml Total Protein 7.7 (6.4-8.2) gm/dl Albumin 3.9 (3.4-5.0) gm/dl Globulin 3.8 (2.5-4.0) gm/dl Albumin/Globulin Ratio 1.0 (0.9-2) Lipase 147 (73-393) U/L 02/17/19 02/17/19 Range/Units 21:06 21:06 WBC 12.56 H (4.8-10.8) K/uL RBC 6.08 (4.7-6.1) M/uL Hgb 19.0 H (14.0-18.0) g/dL Hct 55.1 H (42-52) % MCV 90.6 (80-100) fL MCH 31.3 (25-34) pg MCHC 34.5 (32-36) g/dL RDW Std Deviation 47.8 H (36.4-46.3) fL RDW Coeff of Georgi 14.3 (11.5-14.5) % Plt Count 235 (130-400) K/uL MPV 9.8 (7.4-10.4) fL Immature Gran % (Auto) 0.8 % Neut % (Auto) 82.3 % Lymph % (Auto) 8.4 % [place] % (Auto) 6.4 % Eos % (Auto) 1.5 % Baso % (Auto) 0.6 % Immature Gran # (Auto) 0.10 H (0.00-0.02) K/uL Neut # (Auto) 10.34 H (1.4-6.5) K/uL Lymph # (Auto) 1.06 L (1.2-3.4) K/uL [place] # (Auto) 0.80 H (0.11-0.59) K/uL Eos # (Auto) 0.19 (0-0.5) K/uL Baso # (Auto) 0.07 (0-0.2) K/uL PT 10.8 (9.0-12.0) Seconds INR 1.1 (0.9-1.1) APTT (21.0-31.0) Seconds PTT Ratio Sodium (136-145) mmol/L Potassium (3.5-5.1) mmol/L Chloride (98-107) mmol/L Carbon Dioxide (21-32) mmol/L Anion Gap (3-11) BUN (7-18) mg/dl Creatinine (0.6-1.4) mg/dl Est Cr Clr Drug Dosing ml/min Est GFR ( Amer) Est GFR (Non-Af Amer) BUN/Creatinine Ratio (10-20) Glucose (70-99) mg/dl Calcium (8.5-10.1) mg/dl Magnesium (1.8-2.4) mg/dl Total Bilirubin (0.2-1) mg/dl AST (15-37) U/L ALT (12-78) U/L Alkaline Phosphatase (45-117) U/L Total Creatine Kinase (39-308) U/L Troponin I (0-0.045) ng/ml Total Protein (6.4-8.2) gm/dl Albumin (3.4-5.0) gm/dl Globulin (2.5-4.0) gm/dl Albumin/Globulin Ratio (0.9-2) Lipase (73-393) U/L Medications Administered Current Inpatient Medications Acetaminophen (Tylenol) 650 mg PO Q4H PRN PRN Reason: mild pain or fever Stop: 03/20/19 01:54 Last Admin: 02/18/19 07:51 Dose: 650 mg Documented by: Aspirin (Ecotrin Ectab) 81 mg PO QAM [facility] Stop: 03/20/19 08:59 Last Admin: 02/18/19 07:43 Dose: 81 mg Documented by: Famotidine (Pepcid) 20 mg PO BID [facility] Stop: 03/20/19 08:59 Last Admin: 02/18/19 07:43 Dose: 20 mg Documented by: Heparin Sodium/Dextrose (Heparin Sodium/Dextrose) 25,000 units in 500 mls @ 31 mls/hr IV .Q16H8M [facility]; Protocol Stop: 03/20/19 00:44 Last Titration: 02/18/19 07:08 Dose: 1,450 units/hr, 29 mls/hr Documented by: Lactated Ringer's (Lr) 1,000 mls @ 100 mls/hr IV .Q10H [facility] Stop: 03/20/19 01:54 Last Admin: 02/18/19 02:30 Dose: 100 mls/hr Documented by: Lorazepam (Ativan) 0.5 mg in 1 mls @ 1 mls/min IV Q4H PRN PRN Reason: Anxiety Stop: 03/20/19 01:54 Metoprolol Tartrate (Lopressor) 5 mg IV Q4 PRN PRN Reason: HR>110 sustained for > 1min. Stop: 03/20/19 01:54 Morphine Sulfate (Morphine Sulfate) 2 mg IV Q3H PRN PRN Reason: Moderate Pain Stop: 03/04/19 01:54 Morphine Sulfate (Morphine Sulfate) 4 mg IV Q4H PRN PRN Reason: Severe Pain Stop: 03/04/19 01:54 Nitroglycerin (Nitrostat) 0.4 mg SL UD PRN PRN Reason: Chest Pain Stop: 03/20/19 01:54 Ondansetron HCl (Zofran) 4 mg IV Q6H PRN PRN Reason: nausea or vomiting Stop: 03/20/19 01:54 PG Care Time/CCT Total # of Minutes Spent Total Time Spent with Patient: Total time spent is greater than 50% in coordination of care (as documented) at patient's floor/unit and/or counseling patient: Resident Activity Tracking Resident Involvement: Resident Care Provided Care Provided: Adult Hospital Medicine
[2019-02-18] MEDS ORDERED: PRASugrel TAB 10 MG TAB PO ONE (11:16)
--- NOTE | 2019-02-18 11:31 | Pre Anesthesia Assessment ---
Date of Service February 18, 2019 Pre Sedation Assessment Vital Signs Temp Pulse Pulse Pulse Resp BP BP 02/18/19 07:34 98.1 F 98 H 18 136/86 02/18/19 07:02 98.4 F 97 H 18 159/96 H 02/18/19 03:28 98.4 F 102 H 18 148/88 H 02/18/19 02:23 98 H 18 143/87 H 02/18/19 02:00 108 H 02/18/19 01:55 98.1 F 105 H 20 199/83 H 02/18/19 01:28 105 H 18 115/65 02/17/19 23:31 107 H 18 140/95 02/17/19 21:52 20 163/105 H 02/17/19 20:34 97.3 F L 71 98 H 158/115 H Pulse Ox Pulse Ox 02/18/19 07:34 93 02/18/19 07:02 95 02/18/19 03:28 94 02/18/19 02:23 02/18/19 02:00 02/18/19 01:55 98 98 02/18/19 01:28 94 02/17/19 23:31 95 02/17/19 21:52 96 02/17/19 20:34 99 Cardiovascular RRR, no murmur, no edema Respiratory normal respiratory effort, lungs clear to auscultation Pre-Sedation Airway Assessment Smoking Status: Never smoker Hx Sleep Apnea: No Short, Thick Neck: No Thyromental Distance: > or= 3.5 Finger Breadths Oral Cavity: + WNL Mallampati Class: III ASA: ASA2 NPO Status Date of Last Intake of Fluids: 02/17/19 Time of Last Intake of Fluids: 18:00 Date of Last Intake of Solid Food: 02/17/19 Time of Last Intake of Solid Foods: 18:00 Procedure Planning Contraindications for Sedation: none Current Medications Reviewed: Yes Notes The planned sedation has been discussed with the patient. Informed Consent was obtained. I have identified the patient, determined the appropriateness of sedation and have assessed the patient immediately prior to the procedure. All medicine(s) and interventions are by my order.
--- NOTE | 2019-02-18 11:32 | Post Anesthesia Assessment ---
Date of Service February 18, 2019 Post Sedation Assessment Vital Signs Temp Pulse Pulse Pulse Resp BP BP 02/18/19 07:34 98.1 F 98 H 18 136/86 02/18/19 07:02 98.4 F 97 H 18 159/96 H 02/18/19 03:28 98.4 F 102 H 18 148/88 H 02/18/19 02:23 98 H 18 143/87 H 02/18/19 02:00 108 H 02/18/19 01:55 98.1 F 105 H 20 199/83 H 02/18/19 01:28 105 H 18 115/65 02/17/19 23:31 107 H 18 140/95 02/17/19 21:52 20 163/105 H 02/17/19 20:34 97.3 F L 71 98 H 158/115 H Pulse Ox Pulse Ox 02/18/19 07:34 93 02/18/19 07:02 95 02/18/19 03:28 94 02/18/19 02:23 02/18/19 02:00 02/18/19 01:55 98 98 02/18/19 01:28 94 02/17/19 23:31 95 02/17/19 21:52 96 02/17/19 20:34 99 Recovery Score Activity: Moves 4 extremities Respiration: Deep Breath/Cough Circulation: +/-20% PreAnes Value Consciousness: Fully Awake Oxygen Saturation: O2 needed for >90% Discharge Sedation Level of Care: Fast Track Phase II Post Sedation Plan On clinical assessment, the patient appears to have tolerated the sedation without complications. Patient is recovering as anticipated. Patient will continue to be monitored by nursing and may be discharged when sedation discharge criteria are met per below protocol. Upon Completions of procedure and additional 15 minutes continue every 5 minute vital signs and the P.A.R. score; then discharge to a Phase I or Fast Track to Phase II per the following guidelines: * Discharge Patient to appropriate Phase II area if PAR is 8 or greater or return to pre- procedure baseline. The post - procedure orders will be as directed. * If PAR score is less than 8 or not return to pre-procedure baseline then patient will follow Phase I monitoring till PAR is reached for Phase II. The Phase I may be done in procedure room or may call to secure a Phase I area. * If naloxone or flumazenil are used for reversal, hold in Phase I for continued monitoring from when last reversal dose was given for a minimum of 60 minutes or longer pending the nurse and/or physician discretion of patient condition before discharge to Phase II. Please call the Sedation Physician to re-evaluate and complete post-note for discharge to Phase II area. Do NOT discharge from procedure sedation or Phase 1 until post- sedation evaluation note is complete by procedure /sedation MD Sedation Discharge Instructions to be given to the patient at discharge to home.
--- NOTE | 2019-02-18 11:34 | Cardiac Catheterization ---
[facility] Data: Register Of Deeds Cardiac Status Clinical evaluation leading to the procedure CAD Presenation: Non STEMI Anginal Classification: CCS IV Heart Failure: No Cardiogenic Shock within 24 Hours: No Cardiac Arrest within 24 Hours: No Imaging Studies Past 6 Months: Yes Stress Studies Past 6 Months: No Diagnostic Physicians Name: Markus Villareal MD Status: Elective Closure Device Percutaneous Entry Location: Radial Closure Device: Radial Band Recommendations: PCI without planned CABG PCI Indication: PCI for high risk Non-KASEY Lesion Segment Name: mid LAD Culprit Artery: Yes Stenosis Prior to Rx (%): 70-80 Chronic Total Occlusion: No IVUS: Yes FFR: No Pre-Procedure NELSON Flow: 3 Previously Treated Lesion: No Lesion Complexity: Non-High/Non-C Lesion Length (mm): 35 Thrombus Present: Yes Bifurcation Lesion: Yes Guidewire Across Lesion: Stenosis Post-Procedure (%): 0 Post-Procedure NELSON Flow: 3 Devices(s) Deployed: Yes Yes Intraprocedure Events Significant Disection: No Perforation: No Cardiac Cath Procedure Full Procedure Date February 18, 2019 Pre-Procedure Diagnosis Pre-Procedure Diagnosis: Non STEMI AUC Score AUC Score: 8 Post-Procedure Diagnosis Post-Procedure Diagnosis: Severe CAD, Successful PCI and Normal Intracardiac Pressures Procedure(s) Performed Procedure(s) Performed: Coronary Angiography, Left Heart Cath, Drug Eluting Stent and IVUS Model Maker [employer] Markus Villareal MD Beef Specialist(s) Aarti Estimated Blood Loss Estimated Blood Loss: 15 Medication(s) Medication(s): Fentanyl, Heparin, Lidocaine 1%, Nicardipine, Nitroglycerin and Versed Medication(s): Prasugrel Summary of Findings Indication: High risk NSTEMI Access: 6 Fr right radial artery Catheters: [place], JL 3.5, JR4, EBU 3.5 guide Findings: LM -Short, luminal irregularities LAD -large caliber vessel with diffuse mild to moderate proximal mid disease. Focal 70 to 80% stenosis in mid segment just after takeoff of moderate caliber third diagonal, distal luminal irregularities. Vessel wraps around apex. Bifurcating small to moderate caliber first diagonal with 60% ostial stenosis. No significant disease in second and third diagonals. Circumflex -large caliber vessel, luminal irregularities, gives off large OM 2 without any acute disease. Terminal PLB without significant disease. RCA -large caliber vessel, dominant, luminal irregularities LVEDP - 16 -- PCI -- Antithrombotic therapy: Heparin, Prasugrel Procedure: Left main cannulated with EBU 3.5 guide BMW wire passed across lesion into distal LAD IVUS used for vessel sizing and to assess extent of disease, degree of calcification and involvement with branch vessels. Found to have moderate to severe, minimally calcified plaque extending from mid segment back to proximal LAD and takeoff of first diagonal. Minimal luminal area, Measured stenosis 76%. Whisper wire placed into third diagonal Mid LAD stented with 3.0 x 18 [place] extending over takeoff of second and third diagonals. Proximal to mid LAD stented with 4.0 x 26 mm [place] overlapping with initial stent MIRIAM revealed no edge complications but underexpanded stents throughout Stents post-dilated with 5.0 noncompliant balloon IC vasodilators administered for spasm Post procedure NELSON 3 flow, stent well expanded with minimal residual stenosis and no apparent cardiac complications. Arterial Closure: TR band Summary: 1. Severe single vessel coronary artery disease -70 to 80% mid LAD. Moderate to severe, diffuse proximal to mid LAD disease by IVUS 2. Normal intracardiac filling pressure 3. Successful PCI of proximal to mid LAD with 2 overlapping drug-eluting stents (4.0 x 26, 3.0 x 18 [place]; postdilated with 5.0 NC). Recommendations: To PCU for continued monitoring Loaded with Prasugrel 60 mg in manager cardiac cath Continue dual-antiplatelet therapy for at least one year Continue statin, and ASCVD risk factor modification Consult cardiac Rehab Hemodynamics Rest Ao:: 119/88/107 Final Ao: 128/90/104 LV: 136/16 Recommendations Recommendations: PCI without planned CABG Specimens Specimens: None Radiation Exposure (mGy) 3221 Contrast (mls) 190 Fluids (cc crystalloids) Fluids (cc crystalloids): 156 Drains Drains: None Anesthesia Moderate Procedural Complication(s) None Disposition PCU I attest to the content of the Intraoperative Record and any orders documented therein. Any exceptions are noted below.
[2019-02-18] MEDS ORDERED: SODIUM CHLORIDE 0.9% 1000ML 1,000 ML IV SCH (12:00)
[2019-02-18 13:41] LABS: Partial Thromboplastin Ratio 4.2
[2019-02-18 13:44] LABS: Partial Thromboplastin Time 112.7 Seconds (21.0-31.0)
[2019-02-18] MEDS ORDERED: ACETAMINOPHEN 1,000 MG/100 ML VIAL IV STA (17:06)
[2019-02-18] MEDS ORDERED: Nursing to Pharmacy Communication ONE (18:09)
[2019-02-18] MEDS: METOPROLOL TARTRATE 25 MG TAB PO SCH (20:16)
[2019-02-19 06:35] LABS: Hematocrit (blood only) 55.8 % (42-52); Hemoglobin 19.2 g/dL (14.0-18.0); Mean Corpuscular Hemoglobin 31.5 pg (25-34); Mean Corpuscular Volume 91.5 fL (80-100); Mean Platelet Volume 9.5 fL (7.4-10.4); Platelet Count 225 K/uL (130-400); RDW Coefficient of Variation 14.9 % (11.5-14.5); White Blood Count 11.46 K/uL (4.8-10.8)
[2019-02-19 06:36] LABS: Mean Corpuscular Hgb Conc 34.4 g/dL (32-36)
[2019-02-19 07:12] LABS: BUN Creatinine Ratio 6.1 (10-20); Calcium 9.5 mg/dl (8.5-10.1); Creatinine Clr Calc Pharmacy 67.4 ml/min; Est GFR (African American) 60.3; Est GFR (Non-African American) 52.1; Magnesium 1.9 mg/dl (1.8-2.4)
[2019-02-19] MEDS: FAMOTIDINE 20 MG TAB PO SCH (08:39)
[2019-02-19] MEDS: METOPROLOL TARTRATE 25 MG TAB PO SCH (08:39)
[2019-02-19] MEDS: ASPIRIN 81 MG ECTAB PO SCH (08:40)
[2019-02-19] MEDS ORDERED: ATORVASTATIN 40 MG TAB PO SCH (09:00)
[2019-02-19] MEDS ORDERED: ASPIRIN 81 MG ECTAB PO SCH (09:00)
[2019-02-19] MEDS ORDERED: PRASugrel TAB 10 MG TAB PO SCH (09:00)
[2019-02-19] MEDS ORDERED: LISINOPRIL 5 MG TAB PO SCH (09:00)
--- NOTE | 2019-02-19 12:13 | Discharge Summary ---
Date of Service February 19, 2019 Principal Diagnosis NSTEMI Discharge Exam Constitutional well developed and well nourished Eyes PERRL, conjunctivae normal, anicteric sclerae ENMT external ear and nose normal, oropharynx normal Respiratory normal respiratory effort, lungs clear to auscultation Cardiovascular RRR, no murmur, no edema Discharge Data Allergies Allergy/AdvReac Type Severity Reaction Status Date / Time No Known Allergies Allergy Unverified 02/17/19 22:22 Consultations 02/18/19 00:06 ED Decision to Admit Stat 02/18/19 01:55 Consult Cardiology Routine Consult Case Management - Discharge Planning Routine 02/18/19 11:57 Consult Cardiac Rehabilitation Routine Procedures Performed Operation Date: 02/18/19 09:30 Actual Procedures p Cath, Left with Cors and Vent - Kulwant Villareal MD s Cineradiography w/Routine Exam - Kulwant Villareal MD s Drug Eluting Stent SGl Vessel - Kulwant Villareal MD s IVUS Coronary Single Vessel - Kulwant Villareal MD Ordered Studies 02/18/19 09:25 CL Cath Imgs for PACS use only Routine 02/18/19 16:30 CL IVUS Coronary Single Vessel Routine Hospital Course (1) Non-ST elevation VA (NSTEMI): 43 y/o male presented to the ED with sudden onset of non-radiating, midsternal chest pain described as a burning pain while doing bench press. No associated SOB, diaphoresis, N/V, or dizziness. He had a similar episode 1 week prior and was seen in [place] [facility] Non-ST Elevation VA: -Troponins trended up from admission 0.24 - 7.01 - 19.3; post-procedure 13.7 -s/p PCI with two stents placed in proximal LAD -started on Atorvastatin, lisinopril, metroprolol, ASA, and Effient following stent placement -Echo demonstrated and EF 45-50%, with mild hypokinesis of the mid and distal anterior wall and apex Total Time Total Time Spent Total Time Spent (In Minutes): Total time was 40 minutes. Discharge Plan Discharge Items Patient Disposition: Home - Self-Care Reason For Visit: NSTEMI Discharge Diagnosis: NSTEMI Condition on Discharge: Serious Activity: Per Instructions section Non-emergency contact: Primary Care Provider and Certified Pharmacy Technician Call non-emergency contact if: you have any medication questions and your symptoms worsen Follow-up/Referrals: Kulwant Villareal MD [Physician] - 03/04/19 10:00 am (Please, follow up at [facility] Cardiology Office with Dr. Isma Villareal on SundayMarch 04 at 10:00 am. *The office is located in [address] of [facility], next to this [facility]. If you need to change this appointment, call the office at [phone].) Shanae Hastings MD [Primary Care Provider] - 02/27/19 4:10 pm (Please, follow up with Dr. Shanae Hastings on on February 27 at 4:10 pm. *The office is located in [address] of [facility], next to this [facility]. If you need to change this appointment, call the office at [phone].) Diet: Regular Addtl Attending Provider Instructions: You were admitted after having sharp chest pain shortly after exercising; during this admission, the lab results demonstrated that you had some changes to the blood flow to your heart and this ultimately required you to have the vessels of your heart examined, and two stents placed in the vessel to the front of your heart. 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 These medications are Lisinopril, Atorvastatin, Metoprolol, Effient, and a daily Aspirin. All of these medications are important for the protection of your heart following this change to the vessel. In the coming weeks, and months you will have follow-up with you Certified Pharmacy Technician. In addition to these visits, it is important that you establish care with a primary care physician for continued management of your medical needs. You are welcome to establish care with any of the providers in our clinic, and would only need to call [facility] at in order to get this appointment. Pending Studies at Discharge: No Stand-Alone Forms: Call Back Authorization, My [facility] [place], Smoking Cessation Medications and DC Order Prescriptions: New prasugrel [Effient] 10 mg Tablet 10 mg PO QAM 30 Days Qty: 30 RF: 0 atorvastatin 40 mg Tablet 80 mg PO QAM 30 Days Qty: 60 RF: 0 lisinopril [Zestril] 5 mg Tablet 5 mg PO QAM 30 Days Qty: 30 RF: 0 metoprolol tartrate 25 mg Tablet 25 mg PO BID 30 Days Qty: 60 RF: 0 aspirin [Ecotrin Low Strength] 81 mg Tablet,Delayed Release (Dr/Ec) 81 mg PO QAM 30 Days Qty: 30 RF: 0 Continued sildenafil 25 mg Tablet PO DAILY PRN (Reason: ERECTILE DISFUNCTION) RF: 0 ibuprofen 200 mg Tablet 400 mg PO QID PRN (Reason: Pain) RF: 0 tadalafil 2.5 mg Tablet PO DAILY PRN (Reason: ERECTILE DISFUNCTION) RF: 0 Discharge Orders: Discharge Order (Routine); Ordered 02/19/19 Ordered By: Cooper Aguilar Admission Data Admit Date/Time: 02/18/19 00:58 Attending Provider: Dudley Purvis Admit Provider: Beni Burns Primary Care Provider: Shanae Hastings Other Providers: Beni Burns ; Avi Lawrence Other Interventions: Discharge Summary Assessment (RN) Last Done: 02/19/19 12:17 DC Date/Time DO NOT enter until pt leaves facility: 02/19/19 13:06 Supervising Physician Co-Signing Physician Notes I saw the patient concurrent with the resident physician and confirmed mckay portions of the history and physical exam. I agree with the impression and plan as noted above. I also discussed the case with cardiology. Upon examination, the patient is without chest pain or shortness of breath. He has some questions about activity medications and these were answered. He has been discharged on high intensity statin, GIANA inhibitor, beta-hugo, and low platelet therapy. Discussed in detail the need to continue these as all have been shown to decrease reinfarction, stroke and overall mortality post myocardial infarction. Discussed the side effects unique to each medication. The patient will follow-up with cardiology. Also recommended follow-up with his primary care physician. Resident Activity Tracking Resident Involvement: Resident Care Provided Care Provided: Adult [facility]
--- NOTE | 2019-02-19 21:33 | Cardiology Progress Note ---
Date of Service February 19, 2019 Assessment & Plan (1) Non-ST elevation PA (NSTEMI): 2. Mild LV dysfunction with anterior wall motion of normality 3. Dyslipidemia Patient stable from a cardiac standpoint. Chest pain-free, no access site complication, labs stable. Okay for discharge today with follow-up with cardiology in 2 to 3 weeks. Continue DAPT on discharge with aspirin, Prasugrel. Continue high intensity statin, GIANA, beta-hugo. Subjective Patient feeling well this morning. No recurrent chest pain. No other new complaints. Telemetry reviewedno events. Review of Systems Review of Systems: All systems reviewed & are unremarkable except as noted in HPI & below Physical Exam Physical Exam: General: Comfortable, no acute distress HEENT: Sclerae anicteric, mucous membranes moist Lungs: Clear to auscultation bilaterally, no rhonchi or wheezes Cardiac: Regular rate and rhythm, no murmurs. No JVD. Abdomen: Soft, nontender, nondistended, positive bowel sounds. Extremities: Warm, well perfused, no edema. Right radial artery access site with no ecchymosis, hematoma. Distal pulse and sensation intact. Skin: No rashes or lesions. Neuro: Nonfocal Psych: Alert orient x3, normal affect and mood Results & Data Vital Signs (Past 12 Hours) Vital Signs Temp Pulse Pulse Resp BP BP Pulse Ox 02/19/19 12:17 97.3 F L 91 H 76 18 124/80 110/75 96 02/19/19 11:02 97.3 F L 76 18 110/75 96 PG Care Time/CCT Total # of Minutes Spent Total Time Spent with Patient: Total time spent is greater than 50% in coordination of care (as documented) at patient's floor/unit and/or counseling patient:
== END 2019-02-19 13:06 | disposition home or self-care (01) | DRG 247 ==
LOC: ED 20:33 → SUATTDRO 02-18 00:58 → 2S 02-18 00:58